=== PATIENT | female | born 1980 | race Caucasian/White ===

== ENCOUNTER 2023-06-24 10:58 | Outpatient (CLI) | payer OTHER, SELFPAY ==
[2023-06-24 19:46] LABS: Hematocrit 45.3 % (37.0-47.0); Hemoglobin 14.3 g/dL (12.0-15.0); Mean Corpuscular HGB Conc 31.6 g/dl (32-36); Mean Corpuscular Hemoglobin 29.8 pg (26-34); Mean Corpuscular Volume 94.4 fl (80-100); Mean Platelet Volume 10.8 fl (7.4-10.4); Platelet Count Result 311 k/mm3 (150-375); Red Cell Distribution Width 12.1 % (11.5-14.5); White Blood Count 8.3 K/mm3 (4.5-10.0)
[2023-06-24 19:47] LABS: Iron 82 ug/dL (37-170)
[2023-06-24 19:57] LABS: Percent Iron Saturation 22 % (20-50)
[2023-06-24 20:25] LABS: Alanine Aminotransferase 14 U/L (6-35); Albumin Level 4.3 g/dL (3.5-5.1); Alkaline Phosphatase 66 U/L (38-126); Anion Gap 8 mmol/L (8-16); Aspartate Amino Transferase 22 U/L (14-36); Bilirubin,Total 0.4 mg/dL (0.2-1.3); Blood Urea Nitrogen 10 mg/dL (7-17); Calcium 9.1 mg/dL (8.4-10.2); Carbon Dioxide 26 mmol/L (22-30); Chloride 106 mmol/L (98-107); Estimated Glomerular Filt Rate > 60; Glucose 99 mg/dL (65-110); Potassium 4.3 mmol/L (3.4-5.0); Sodium 140 mmol/L (137-145)
== END 2023-06-24 10:59 | disposition home or self-care (01) ==
PROVIDERS: PCP Nurse Practitioner Adult Health; Visit Provider Nurse Practitioner Adult Health
DX: N92.0 Excessive and frequent menstruation with regular cycle (principal)
CPT/HCPCS: 36415; 80053; 82728; 83540; 83550; 84439; 84443; 85027

== ENCOUNTER 2025-05-18 09:09 | Emergency (ER) | payer OTHER, SELFPAY ==
--- NOTE | ~2025-05-18 | US_ITS ---
EXAMINATION: US pelvic complete DATE: 05/18/2025 10:51 INDICATION: Abnormal vaginal bleeding TECHNIQUE: Multiple transabdominal and endovaginal sonographic images of the pelvis were obtained. COMPARISON: None. FINDINGS: The uterus measures 10.4 x 5.0 x 7.0 cm. The endometrial complex is thickened measuring 23.3 cm in thickness with heterogeneous internal echogenicity. The right ovary measures 4.1 x 3.2 x 2.2 cm. Anechoic cystic lesion in the right ovary with single thin internal septation which could represent either a mildly complex septated cyst or more likely a smaller 1.6 cm cyst impressing upon a larger 3.7 cm cyst. The left ovary measures 2.1 x 1.3 x 1.1 cm. Vascular flow identified in both ovaries on color Doppler There is trace amount of likely physiologic free fluid in the cul-de-sac. IMPRESSION: 1. Heterogeneous thickened endometrial complex for which differential would include endometrial hyperplasia, endometrial polyp or endometrial carcinoma. Consider hysteroscopy for further evaluation. 2. A couple simple right ovarian cysts versus 3.7 cm mildly complex cyst with single thin internal septation not requiring further follow-up. Reviewed, dictated and finalized at location A. OR PHP WEB DEVELOPER IMPRESSION: 1. Heterogeneous thickened endometrial complex for which differential would inc lude endometrial hyperplasia, endometrial polyp or endometrial carcinoma. Consi sundar hysteroscopy for further evaluation. 2. A couple simple right ovarian cysts versus 3.7 cm mildly complex cyst with s noa thin internal septation not requiring further follow-up.
[2025-05-18 09:15] VITALS: BP 138/77; PULSE 81; RESP 16; TEMP 36.4; O2SAT 100
--- OUTSIDE RECORDS SUMMARY | 2025-05-18 09:24 | XMS_ITS | Clinical Summary ---
Author Organization [facility] [employer] Address [address] [place] [id number] Care Team Providers Care Weapons Officer Name Role Phone Zakiya Morrison MD Primary Care Provider [phone] Allergies No known active allergies Medications meclizine 12.5 mg tablet Take 12.5 mg by mouth 3 times daily as needed for Dizziness. Active DULoxetine (Cymbalta) 30 mg Capsule, Delayed Release(E.C.) Take 1 Capsule (30 mg) by mouth daily in the morning. 30 Capsule 11/09/2024 Active Active Problems Problem Noted Date Diagnosed Date Mixed hyperlipidemia 01/07/2024 Post-concussion vertigo 12/28/2022 Anxiety and depression 12/28/2022 BPV (benign positional vertigo), bilateral 12/07 Vitamin D insufficiency 04/02/2022 Low vitamin B12 level 04/02/2022 Non-seasonal allergic rhinitis 03/19/2022 Severe menstrual cramps 03/19/2022 Encounters Date Type Department Care Team Description 05/11/2025 External Device Data [facility]STRACTION Provider, Abstract 05/05/2025 External Device Data [facility] Provider, Abstract 05/04/2025 External Device Data [facility] Provider, Abstract 04/27/2025 External Device Data [facility]STRA[facility] Provider, Abstract from Last 3 Months Family History Medical History Relation Name Comments COPD Father Hepatitis Father Hypertension Father Liver Disease Father Hepatitis Mother Liver Disease Mother Hypertension Paternal Grandfather Relation Name Status Comments Father Alive Mother Paternal Grandfather Son 1 Alive Son 2 Alive Social History Tobacco Use Types Packs/Day Years Used Date Smoking Tobacco: Former Cigarettes Smokeless Tobacco: Never Tobacco Cessation:Counseling Given: Not Answered Alcohol Use Standard Drinks/Week Comments Not Currently 0 (1 standard drink = 0.6 oz pur e alcohol) Comments No Sex and Gender Information Value Date Recorded Sex Assigned at Not on file Legal Sex Female 12:54 PM CDT Gender Identity Not on file Sexual Orientation Not on file Last Filed Vital Signs Vital Sign Reading Time Taken Comments Blood Pressure 120/72 11/09/2024 10:17 AM CDT Pulse 77 11/09/2024 10:17 AM CDT Temperature 36.8 C (98.2 F) 11/09/2024 10:17 AM CDT Respiratory Rate 16 11/09/2024 10:17 AM CDT Oxygen Saturation 100% 11/09/2024 10:17 AM CDT Inhaled Oxygen Concentration - - Weight 90.3 kg (199 lb) 11/09/2024 10:17 AM CDT Height 162.6 cm (5' 4) 11/09/2024 10:17 AM CDT Body Mass Index 34.16 11/09/2024 10:17 AM CDT Plan of Treatment Health Maintenance Due Date Last Done Comments DTAP/TDAP/TD VACCINES (1 - Tdap) 01/31/2000 HEPATITIS B VACCINES (1 of 3 - 19+ 3-dose series) 01/31/2000 HPV VACCINES (1 - 3-dose SCDM series) 01/31/2008 BREAST CANCER SCREENING 04/30/2023 04/30/2022, 04/16 Preventative Visit- Commercial 07/08/2024 INFLUENZA VACCINE (#1) 2025 Pre-Diabetes and Diabetes Screening 03/26/202503/26 PAP SMEAR 04/02/2025 04/02/2022 CERVICAL CANCER SCREENING 04/02/2027 HPV/Cotest (21-29) 04/02/2027 04/02/2022 HPV/Cotest (30-65) 04/02/2027 04/02/2022 Procedures Procedure Name Priority Date/Time Associated Diagnosis Comments MAMMO DIAG UNI LEFT 3D DAVIDA W OR WO CAD Routine 04/30/2022 2:11 PM CDT Mass of left breast, unspecified quadrant CERV/VAG CYTO AGE BASED SCREEN PAP Routine 04/02/2022 11:04 AM CDT Well woman exam with routine gynecological exam HEMOGLOBIN A1C Routine 03/26/2022 8:44 AM CDT Screening for diabetes mellitus from Last 3 Months or Most Recently Relevant to Health Maintenance Results * (ABNORMAL) MAMMO DIAG UNI LEFT 3D DAVIDA W OR WO CAD (04/30/2022 2:11 PM CDT) Anatomical Region Laterality Modality Breast Left Mammography 04/30/2022 2:11 PM CDT Impressions 04/30/2022 3:44 PM CDT IMPRESSION: A benign-appearing solid mass at 3:00 of the left breast. RECOMMENDATIONS: Ultrasound-guided guided left breast core biopsy. Left breast overall assessment: BI-RADS Category 4A. Low suspicious lesion. Tissue biopsy is needed. DICTATION LOCATION: [facility] 04/30/2022 3:44 PM CDT MAMMOGRAPHY DIGITAL DIAGNOSTIC UNILATERAL LEFT 3-D TOMOGRAPHY WITH CAD AND LEFT BREAST ULTRASOUND LIMITED 04/30/2022. HISTORY: The screening mammogram dated 04/16/2022 showed masses in the left breast. Left mammographic findings: Tomographic mediolateral view and spot compression views were obtained. The oval mass in the outer central aspect of left breast at the anterior depth is seen. There is again a mass in the outer central aspect of the left breast at the posterior depth. No malignant calcification or architectural distortion is seen. Left breast ultrasound findings: At 3:00, 2 cm from nipple, an oval hypoechoic mass with smooth margins is seen which probably represents a fibroadenoma. It measures 1.5 x 0.7 x 1.5 cm. A cyst is visualized at 3:00, 6 cm from the nipple measuring 0.7 x 0.4 x 0.9 cm. Small cluster of cysts is noted at 4:00, 2 cm from the nipple measuring 0.7 x 0.3 x 0.6 cm. A small oval hypoechoic structure is identified at 4:00 near the nipple measuring 0.8 x 0.3 x 0.7 cm. It appears benign. Another small oval hypoechoic lesion is seen at 6:00, 4 cm from nipple which may represent a cluster of cysts or a lymph node. It measures 0.6 x 0.2 x 0.6 cm. Procedure Note Hina Mauricio MD - 04/30/2022 MAMMOGRAPHY DIGITAL DIAGNOSTIC UNILATERAL LEFT 3-D TOMOGRAPHY WITH CAD AND LEFT BREAST ULTRASOUND LIMITED 04/30/2022. HISTORY: The screening mammogram dated 04/16/2022 showed masses in the left breast. Left mammographic findings: Tomographic mediolateral view and spot compression views were obtained. The oval mass in the outer central aspect of left breast at the anterior depth is seen. There is again a mass in the outer central aspect of the left breast at the posterior depth. No malignant calcification or architectural distortion is seen. Left breast ultrasound findings: At 3:00, 2 cm from nipple, an oval hypoechoic mass with smooth margins is seen which probably represents a fibroadenoma. It measures 1.5 x 0.7 x 1.5 cm. A cyst is visualized at 3:00, 6 cm from the nipple measuring 0.7 x 0.4 x 0.9 cm. Small cluster of cysts is noted at 4:00, 2 cm from the nipple measuring 0.7 x 0.3 x 0.6 cm. A small oval hypoechoic structure is identified at 4:00 near the nipple measuring 0.8 x 0.3 x 0.7 cm. It appears benign. Another small oval hypoechoic lesion is seen at 6:00, 4 cm from nipple which may represent a cluster of cysts or a lymph node. It measures 0.6 x 0.2 x 0.6 cm. IMPRESSION: A benign-appearing solid mass at 3:00 of the left breast. RECOMMENDATIONS: Ultrasound-guided guided left breast core biopsy. Left breast overall assessment: BI-RADS Category 4A. Low suspicious lesion. Tissue biopsy is needed. DICTATION LOCATION: [facility] us Nicole James MD MAMMO ORDERABLES Final Result * CERV/VAG CYTO AGE BASED SCREEN PAP (04/02/2022 11:04 AM CDT) COMMENT (PAP): [facility] [place] Comment: This order for age-based cervical cancer and STI screening follows ACOG guidelines(PB 168, 140, [id number]). See individual assays for performing site location. CLINICAL INFORMATION [facility] [place] Comment:None given LAST MENSTRUAL PERIOD [facility] [place] Comment:NONE GIVEN PREV PAP: [facility] [place] Comment:NONE GIVEN PREV BX: [facility] [place] Comment:NONE GIVEN SOURCE [facility] [place] Comment:Endocervix ADEQUACY: [facility] [place] Comment: Satisfactory for evaluation. Endocervical/transformation zone component present. Age and/or menstrual status not provided PAP INTERP [facility] [place] Comment:Negative for intraep ithelial lesion or malignancy. COMMENT (PAP TEST) [facility] [place] Comment: This Pap test has been evaluated with computer assisted technology. TIRE TRUCKER: [facility] [place] Comment: MVB, CT(ASCP) CT Screening Location: [place] [address] [place] [address] EXPLANATORY NOTE [facility] [place] Comment: EXPLANATORY NOTE: The Pap is a screening test for cervical cancer. It is not a diagnostic test and is subject to false negative and false positive results. It is most reliable when a satisfactory sample, regularly obtained, is submitted with relevant clinical findings and history, and when the Pap result is evaluated along with historic and current clinical information. HPV E6/E7 Not Detected Not Detected [facility] [place] Comment: Methodology: Percussion Tuner-Mediated Amplification This assay detects E6/E7 viral messenger RNA (mRNA) from 14 high-risk HPV types (16,18,31,33,35,39,45,51,52,56,58,59,66,68). Cervical sources are required for HPV testing. If a vaginal source from a patient who has had a total hysterectomy with removal of cervix was submitted, please contact the testing laboratory for alternative testing options. For additional information, please refer to http://[email or web address].Dealstruck/faq/SYC231r1 (This link if provided for information/ educational purposes only.) Test Performed at: [facility] [id number] [place] [address] Saeid Castillo D.O., MPH SL Genital SWAB OF ENDOCERVIX / Unknown 04/02/2022 11:04 AM CDT 04/03/2022 1:40 AM CDT Nicole James MD PATHOLOGY/CYTOLOGY ORDERABLES Final Result Performing Organization Address City/State/[facility] Co de Phone Number [facility] [phone] [facility] [address] [phone] * HEMOGLOBIN A1C (03/26/2022 8:44 AM CDT) HEMOGLOBIN A1C 5.0 <5.7 % of total Hgb [facility] Comment: For the purpose of screening for the presence of diabetes: <5.7% Consistent with the absence of diabetes 5.7-6.4% Consistent with increased risk for diabetes (prediabetes) > or =6.5% Consistent with diabetes This assay result is consistent with a decreased risk of diabetes. Currently, no consensus exists regarding use of hemoglobin A1c for diagnosis of diabetes in children. According to [place] Diabetes Association (ADA) guidelines, hemoglobin A1c <7.0% represents optimal control in non- diabetic patients. Different metrics may apply to specific patient populations. Standards of Medical Care in Diabetes(ADA). ESTIMATED AVERAGE GLUCOSE (MG/DL) 97 mg/dL [facility] ESTIMATED AVERAGE GLUCOSE (MMOL/L) 5.4 mmol/L [facility] Comment: Test Performed at: [facility] [id number] [email or web address] [address] Saeid Castillo D.O., MPH Blood 03/26/2022 8:44 AM CDT 03/27/2022 7:13 AM CDT Nicole James MD CHEMISTRY ORDERABLES Final Re sult Performing Organization Address [facility] Co de Phone Number [facility] [phone] [facility] [address] [address] [phone] from Last 3 Months or Most Recently Relevant to Health Maintenance Insurance ALLEGIANCE OPEN ACCESS ALLEGIAN OPEN ACCESS Care Teams Weapons Officer Relationship Specialty Start Date End Date Zakiya Morrison MD [address] [place] [phone] PCP - General Internal Medicine 01/03/24
--- OUTSIDE RECORDS SUMMARY | 2025-05-18 09:24 | XMS_ITS | Clinical Summary ---
Author Organization [facility] Address [address] [place] [address] Care Team Providers Care Algebraist Name Role Phone Nicole James MD Primary Care Provider Allergies No known active allergies Medications HYDROcodone-acetam inophen (NORCO) 5-325 mg per tabletIndications: Pain Take 1-2 tablets by mouth every 4 (four) hours as needed for pain Do not exceed 8 tablets/day. 12 tablet 11/07/19 23 Active Additional Information Patient not taking.Reported on 03/24/2023 meclizine (ANTIVERT) 25 mg tablet Take 1 tablet (25 mg total) by mouth 3 (three) times a day as needed for dizziness 30 tablet 1 12/13/19 23 Active cholecalciferol (VITAMIN D-3) 2000 unit tablet Take 2 tablets (4,000 Units total) by mouth daily 04/02/20 22 Active cyanocobalamin (Vitamin B-12) 1,000 mcg tablet Take 1 tablet (1,000 mcg total) by mouth daily 04/02/20 22 Active cyclobenzaprine (FLEXERIL) 5 mg tablet Take 1 tablet (5 mg total) by mouth nightly 12/08/19 21 Active escitalopram (LEXAPRO) 20 mg tablet Take 1 tablet (20 mg total) by mouth daily 12/29/19 23 Active ondansetron ODT (ZOFRAN-ODT) 4 mg disintegrating tablet Take 1 tablet (4 mg total) by mouth every 8 (eight) hours as needed for nausea or vomiting 20 tablet 03/24/20 23 Active benzonatate (TESSALON) 100 mg capsuleIndications :Cough Take 1 capsule (100 mg total) by mouth 3 (three) times a day as needed for cough 42 capsule 03/24/20 23 Active Active Problems No known active problems Social History Tobacco Use Types Packs/Day Years Used Date Smoking Tobacco: Never Assessed Personal Safety Answer Date Recorded Have you ever been in or are you currently in a harmful physical or emotional relationship or is someone making you feel afraid or unsafe? Denies 12/12/2022 Comments Unknown Sex and Gender Information Value Date Recorded Sex Assigned at Not on file Legal Sex Female 1:13 PM CDT Gender Identity Not on file Sexual Orientation Not on file Last Filed Vital Signs Vital Sign Reading Time Taken Comments Blood Pressure 130/74 03/24/2023 5:05 PM CDT Pulse 77 03/24/2023 5:05 PM CDT Temperature 36.3 C (97.3 F) 03/24/2023 5:05 PM CDT Respiratory Rate 18 03/24/2023 5:05 PM CDT Oxygen Saturation 99% 03/24/2023 5:05 PM CDT Inhaled Oxygen Concentration - - Weight 88.5 kg (195 lb) 03/24/2023 5:05 PM CDT Height 165.1 cm (5' 5) 03/24/2023 5:05 PM CDT Body Mass Index 32.45 03/24/2023 5:05 PM CDT Plan of Treatment Health Maintenance Due Date Last Done Comments Breast Cancer Screening-Mammogram 1981 Cervical Cancer Screening 1981 Depression Screening 1981 Hepatitis C Screening 1981 DTaP/Tdap/Td Vaccine (1 - Tdap) 01/31/1992 Varicella Vaccines (1 of 2 - 13+ 2-dose series) 1994 Hepatitis B Screening 1999 Regular Well Visit/Exam 18-64 1999 HPV Vaccines (1 - 3-dose SCD M series) 01/31/2008 Covid-19 Vaccine ( - 2024-2 6 season) 2025 05/26/2021, 05/05/2021 Influenza Vaccine (#1) 2025 Pneumococcal vaccine <65 Aged Out No longer eligible based on patient's age to complete this topic Insurance C[employer] ALLEGIANCE CIGNA ALLEGIANCE Care Teams Algebraist Relationship Specialty Start Date End Date Nicole James MD PCP - General Family Medicine 11/06/22
--- NOTE | 2025-05-18 09:58 | ED_ITS ---
HPI - Female Genitourinary General Chief complaint: Vaginal Bleeding Stated complaint: dizzy x 1.5 months Time Seen by Provider: 05/18/25 09:26 History of Present Illness HPI Narrative: 45-year-old female presenting with complaints of heavy vaginal bleeding since April 17. Patient reports she missed her March period then began her last period April 17 and it has not abated since. Patient is not on contraception and has no concern for STDs. She believes she is updated on her Paps. Due to see Dr. Weaver in June. She reports dizziness, right-sided abdominal cramping that radiates towards the midline, nausea with vomiting the last few weeks and this morning, and excessive fatigue. She endorses going through a full maxi pad and tampon per hour for the last few days. Denies abnormal discharge, chest pain/shortness of breath, dysuria, diarrhea/constipation, night sweats, weight loss, and exertional dyspnea. Related Data Allergies Allergy/AdvReac Type Severity Reaction Status Date / Time No Known Allergies Allergy Verified 05/18/25 09:19 Review of Systems 2 Review of Systems: All systems reviewed & are unremarkable except as noted in HPI and below PMFSH Past Medical History Medical History Anxiety Asthma Chronic GERD Headache Migraine Vertigo Family History Family History Father History of ETOH abuse Hypertension Heart disease Hepatitis HEP C Mother History of ETOH abuse Hepatitis HEP C Disorder of thyroid Sibling Disorder of thyroid Grandparent Disorder of thyroid Grandparent Hypertension Heart disease Cerebrovascular accident Social History Social History Social History: Caffeine- coffee/tea/soda 2 cups per day Tobacco type: e-cigarettes/vaping Alcohol intake: never Substance use: never Substance use type: does not use Lack of Transportation: No Lack of Food: Sometimes True Current Housing: I Have Housing Concerned About Future Housing: No Difficulty Paying Gas/Electric Bills: No Difficulty Paying for Meds: No Currently Unemployed: No Education: Associate Degree Difficulty w/ Childcare or Family Care: No Living arrangements: with family Occupation/Education: occupation Additional occupation/education comments: [employer] 1 Gender identity (if verbalized by the patient): Female Agree to blood products: Yes Exam 2 Narrative: GENERAL: Well-appearing, well-nourished, and in no acute distress. HEAD: Normocephalic, atraumatic. EYES: PERRLA and EOMI. ENT: Nares clear, no rhinorrhea or epistaxis. Mucous membranes moist. Oropharynx without tonsillar hypertrophy exudate or other lesions. Bilateral TMs pearly pike non-bulging NECK: Supple. No adenopathy or masses. No carotid bruits or JVD CHEST: Clear to auscultation. No respiratory distress. No wheezes rales or rhonchi HEART: Regular rate and rhythm. No murmur heard. Normal peripheral pulses. ABDOMEN: Soft, nontender, nondistended, normal active bowel sounds. EXTREMITIES: Normal range of motion. No edema. SKIN: Warm, dry, no rash. NEURO: No focal deficits. Alert and oriented x3. PSYCH: Normal mood and affect PELVIC: External genitalia normal. Vaginal mucosa without lesions or discharge. Small amount of blood present in vaginal vault. Cervix appears closed without lesions. No cervical motion tenderness or adnexal tenderness on bimanual exam. Course Vital Signs Vital signs: Vital Signs Temperature 97.5 F L 05/18/25 09:15 Pulse Rate 81 05/18/25 09:15 Respiratory Rate 16 05/18/25 09:15 Blood Pressure 138/77 05/18/25 09:15 Pulse Oximetry 100 05/18/25 09:15 Oxygen Delivery Room Air 05/18/25 09:15 Temperature 97.5 F L 05/18/25 09:15 Pulse Rate 84 05/18/25 13:24 Respiratory Rate 17 05/18/25 13:24 Blood Pressure 112/74 05/18/25 13:24 Pulse Oximetry 100 05/18/25 13:24 Oxygen Delivery Room Air 05/18/25 09:15 MDM - Female Genitourinary MDM Narrative Medical decision making narrative: 45-year-old female presenting with complaints of heavy vaginal bleeding since April 17. Patient reports she missed her March period then began her last period April 17 and it has not abated since. Patient is not on contraception and has no concern for STDs. She believes she is updated on her Paps. Due to see Dr. Weaver in June. She reports dizziness, right-sided abdominal cramping that radiates towards the midline, nausea with vomiting the last few weeks and this morning, and excessive fatigue. She endorses going through a full maxi pad and tampon per hour for the last few days. Denies abnormal discharge, chest pain/shortness of breath, dysuria, diarrhea/constipation, night sweats, weight loss, and exertional dyspnea. ED urogenital vaginal bleeding workup obtained. Patient's vitals are stable. TV US demonstrated Heterogeneous thickened endometrial complex for which differential would include endometrial hyperplasia, endometrial polyp or endometrial carcinoma with recommendation of hysteroscopy for further evaluation. And furthermore a couple simple right ovarian cysts versus 3.7 cm mildly complex cyst with single thin internal septation not requiring further follow-up. Spoke with Dr. An with OBGYN who recommended a pelvic exam to assess gross blood and if present to administer TXA and if not to discharge home with Provera and to follow-up outpatient. Pelvic exam demonstrated only a small amount of blood indicating no need for TXA. Patient also reported that when she changed her tampon there was significantly less blood. CBC demonstrated hgb of 9. Positive orthostatic vitals. Administered 1L NS for volume repletion. Vitals remained stable. Patient comfortable with discharge home with Provera and close follow-up with OBGYN. Given reasons to return. Medical Records Attestation: I reviewed the patient's medical records. Lab Data Attestation: I reviewed the patient's lab results. 05/18/25 10:52 05/18/25 10:52 Labs: Lab Results 05/18/25 05/18/25 05/18/25 Range/Units 10:42 10:52 11:18 WBC 7.3 (4.5-10.0) K/mm3 RBC 3.48 L (4.2-5.4) M/mm3 Hgb 9.0 L D (12.0-15.0) g/dL Hct 29.1 L (37.0-47.0) % MCV 83.6 (80-100) fl MCH 25.9 L (26-34) pg MCHC 30.9 L (32-36) g/dl RDW 14.3 (11.5-14.5) % Plt Count 331 (150-375) k/mm3 MPV 10.5 H (7.4-10.4) fl Immature Gran % (Auto) 0.3 (0-0.5) % Neut % (Auto) 55.3 (45.5-73.1) % Lymph % (Auto) 34.4 (18.3-44.2) % [place] % (Auto) 7.0 (2.6-8.5) % Eos % (Auto) 2.5 (0-4.4) % Baso % (Auto) 0.5 (0.2-1.2) % Lymph # (Auto) 2.52 (0.9-3.2) K/mm3 [place] # (Auto) 0.5 (0.1-0.6) K/mm3 Eos # (Auto) 0.2 (0-0.3) K/mm3 Baso # (Auto) 0.0 (0.0-0.1) K/mm3 Abs Immat Gran (auto) 0.02 (0.00-0.031) K/mm3 Absolute Neuts (auto) 4.1 (1.3-6.7) K/mm3 Absolute Nucleated RBC 0.000 (0.0-0.012) K/mm3 Nucleated RBC % 0.0 (0.0-0.2) % PT 13.7 (11.1-14.7) Seconds INR 1.1 APTT 24.4 (22.3-36.8) Seconds Sodium 137 (137-145) mmol/L Potassium 3.8 (3.4-5.0) mmol/L Chloride 105 (98-107) mmol/L Carbon Dioxide 26 (22-30) mmol/L Anion Gap 6 (4-12) mmol/L BUN 7 (7-17) mg/dL Creatinine 0.76 (0.7-1.0) mg/dL Estim Creat Clear Calc 89 ml/min Estimated GFR > 60 (59 - ) Glucose 103 (65-110) mg/dL Calcium 8.4 (8.4-10.2) mg/dL Total Bilirubin 0.3 (0.2-1.3) mg/dL AST 22 (14-36) U/L ALT 20 (6-35) U/L Alkaline Phosphatase 68 (38-126) U/L Total Protein 7.6 (6.3-8.2) g/dL Albumin 4.3 (3.5-5.1) g/dL Beta HCG, Quant < 2.39 mIU/ML Urine Color TNP Urine Appearance TNP Urine pH TNP Ur Specific [place] TNP Urine Protein TNP Urine Glucose (UA) TNP Urine Ketones TNP Ur Blood (Man) TNP Urine Nitrate TNP Urine Bilirubin TNP Urine Urobilinogen TNP Add Ur Microanalysis Reviewed Leukocyte Esterase Rfl TNP Urine RBC 21-50 H (0-2) /hpf Urine WBC 0-5 (0-3) /hpf Ur Squamous Epith Cells None seen (Few) /hpf Urine Bacteria None seen /hpf Urine Casts 0-2 POC Urine HCG, Qual Negative (Negative) Blood Type O Negative Antibody Screen Negative Imaging Data Attestation: I personally reviewed and interpreted this imaging study as follows: Radiologist's impression: ITS Impressions Pelvis Ultrasound 05/18/25 11:01 IMPRESSION: 1. Heterogeneous thickened endometrial complex for which differential would include endometrial hyperplasia, endometrial polyp or endometrial carcinoma. Consider hysteroscopy for further evaluation. 2. A couple simple right ovarian cysts versus 3.7 cm mildly complex cyst with single thin internal septation not requiring further follow-up. Critical Care Time Critical Care Time Critical Care Time: No Discharge Plan Discharge Clinical Impression: Abnormal uterine bleeding (AUB) Patient Disposition: Home Condition: Stable Instructions: Abnormal (Dysfunctional) Uterine Bleeding (ED) Additional Instructions: Take the Provera exactly as prescribed. Usually once a day for a certain number of days. You can take it with or without food. Try to take it at the same time each day. Your cycle may start during or after your medication. You may notice spotting, mild cramping, breast tenderness, or bloating--this is normal. Return to ED if you have heavy or prolonged bleeding, severe abdominal pain, swelling or pain in your legs, chest pain, shortness of breath, sudden severe headache, or vision changes. Do not smoke while taking this medicine especially if you are over 35. Be sure to follow-up with your OBGYN and primary for further outpatient workup and treatment. Patient Language: Icelandic Prescriptions: New medroxyprogesterone [Provera] 10 mg tablet 10 mg PO DAILY Qty: 30 0RF No Action fluoxetine 10 mg tablet 10 mg PO QHS Qty: 30 1RF meclizine 25 mg tablet 25 mg PO DAILY PRN (Reason: dizziness) Qty: 30 1RF Follow-up/Referrals: PHYSICIAN NOT ON STAFF,NONSTAFF [Primary Care Provider]
[2025-05-18] MEDS: ONDANSETRON HCL ODT 4 MG TABLET PO (10:41)
[2025-05-18 10:42] VITALS: BP 117/79; PULSE 77; RESP 20; O2SAT 100
--- NOTE | 2025-05-18 10:45 | PC.NURSE ---
Pt returned to room 10 after US, reconnected to monitor, adjusted and updated.
[2025-05-18 11:00] LABS: Hematocrit 29.1 % (37.0-47.0); Hemoglobin 9.0 g/dL (12.0-15.0); Immature Granulocyte Percent A 0.3 % (0-0.5); Lymphocytes Absolute Auto 2.52 K/mm3 (0.9-3.2); Mean Corpuscular HGB Conc 30.9 g/dl (32-36); Mean Corpuscular Hemoglobin 25.9 pg (26-34); Mean Corpuscular Volume 83.6 fl (80-100); Nucleated Red Blood Cells Absolute Auto 0.000 K/mm3 (0.0-0.012); Nucleated Red Blood Cells Perc 0.0 % (0.0-0.2); Platelet Count Result 331 k/mm3 (150-375); Red Blood Count 3.48 M/mm3 (4.2-5.4); White Blood Count 7.3 K/mm3 (4.5-10.0)
[2025-05-18 11:12] LABS: INR 1.1; Prothrombin Time 13.7 Seconds (11.1-14.7)
[2025-05-18 11:13] LABS: Partial Thromboplastin Time 24.4 Seconds (22.3-36.8)
[2025-05-18 11:16] LABS: Alanine Aminotransferase 20 U/L (6-35); Albumin Level 4.3 g/dL (3.5-5.1); Alkaline Phosphatase 68 U/L (38-126); Anion Gap 6 mmol/L (4-12); Aspartate Amino Transferase 22 U/L (14-36); Bilirubin,Total 0.3 mg/dL (0.2-1.3); Blood Urea Nitrogen 7 mg/dL (7-17); Calcium 8.4 mg/dL (8.4-10.2); Carbon Dioxide 26 mmol/L (22-30); Chloride 105 mmol/L (98-107); Estimated CRCL calculation 89 ml/min; Estimated Glomerular Filt Rate > 60; Glucose 103 mg/dL (65-110); Potassium 3.8 mmol/L (3.4-5.0); Sodium 137 mmol/L (137-145); Total Protein 7.6 g/dL (6.3-8.2)
[2025-05-18 11:20] LABS: Need Manual Microscopic Reviewed; Non Pathogenic Casts 0-2
[2025-05-18 11:21] LABS: BEDSIDEPREGUCG Negative (Negative)
[2025-05-18 11:28] LABS: Beta HCG Quantitative < 2.39 mIU/ML
[2025-05-18 11:32] LABS: Add Urine Microscopic? YES
--- OUTSIDE RECORDS SUMMARY | 2025-05-18 11:41 | XMS_ITS | Clinical Summary ---
Author Organization [facility] [employer] W[place]URCH Address [address] [place] [id number] Care Team Providers Care Content Engineer Name Role Phone Zakiya Morrison MD Primary Care Provider [phone] Allergies No known active allergies Medications meclizine [...] lesion. Tissue biopsy is needed. DICTATION LOCATION: [facility] 04/30/2022 3:44 PM CDT MAMMOGRAPHY DIGITAL [...] lesion. Tissue biopsy is needed. DICTATION LOCATION: [facility] us Nicole James MD MAMMO ORDERABLES Final Result * CERV/VAG CYTO AGE BASED SCREEN PAP (04/02/2022 11:04 AM CDT) COMMENT (PAP): [facility] [place] Comment: This order for age-based cervical cancer and STI screening follows ACOG guidelines(PB 168, 140, ZAF598). See individual assays for performing site location. CLINICAL INFORMATION [facility] [place] Comment:None given LAST MENSTRUAL PERIOD [facility] [place] Comment:NONE GIVEN PREV PAP: [facility] [place] Comment:NONE GIVEN PREV BX: [facility] [place] Comment:NONE GIVEN SOURCE [facility] [place] Comment:Endocervix ADEQUACY: [facility] [place] Comment: Satisfactory for evaluation. Endocervical/transformation zone component present. Age and/or menstrual status not provided PAP INTERP [facility] [place] Comment:Negative for intraep ithelial lesion or malignancy. COMMENT (PAP TEST) [facility] [place] Comment: This Pap test has been evaluated with computer assisted technology. DIRECTOR OF OPERATIONS HOME HEALTH: [facility] [place] Comment: MVB, CT(ASCP) CT Screening Location: [place] [address] [place] [address] EXPLANATORY NOTE [facility] [place] Comment: EXPLANATORY NOTE: The Pap is a [...] information. HPV E6/E7 Not Detected Not Detected [facility] [place] Comment: Methodology: Payroll Technician-Mediated Amplification This assay detects E6/E7 viral messenger RNA (mRNA) from 14 high-risk HPV types (16,18,31,33,35,39,45,51,52,56,58,59,66,68). Cervical sources are required for HPV testing. If a vaginal source from a patient who has had a total hysterectomy with removal of cervix was submitted, please contact the testing laboratory for alternative testing options. For additional information, please refer to http://education.[employer].Acteavo/faq/MBP244y6 (This link if provided for information/ educational purposes only.) Test Performed at: [facility] [id number] [place] [address] Saeid Castillo D.O., MPH SL Genital SWAB OF ENDOCERVIX / Unknown 04/02/2022 11:04 AM CDT 04/03/2022 1:40 AM CDT Nicole James MD PATHOLOGY/CYTOLOGY ORDERABLES Final Result Performing Organization Address City/State/[facility] Co de Phone Number [facility] [phone] [facility] [phone] [phone] * HEMOGLOBIN A1C (03/26/2022 8:44 AM CDT) HEMOGLOBIN A1C 5.0 <5.7 % of total Hgb [facility] Comment: For the purpose of screening for the presence of diabetes: <5.7% Consistent with the absence of diabetes 5.7-6.4% Consistent with increased risk for diabetes (prediabetes) > or =6.5% Consistent with diabetes This assay result is consistent with a decreased risk of diabetes. Currently, no consensus exists regarding use of hemoglobin A1c for diagnosis of diabetes in children. According to [place] Diabetes Association (ADA) guidelines, hemoglobin A1c <7.0% represents optimal control in non- diabetic patients. Different metrics may apply to specific patient populations. Standards of Medical Care in Diabetes(ADA). ESTIMATED AVERAGE GLUCOSE (MG/DL) 97 mg/dL [facility] ESTIMATED AVERAGE GLUCOSE (MMOL/L) 5.4 mmol/L [facility] Comment: Test Performed at: [facility] [id number] [place] [address] Saeid Castillo D.O., MPH Blood 03/26/2022 8:44 AM CDT 03/27/2022 7:13 AM CDT Nicole James MD CHEMISTRY ORDERABLES Final Re sult Performing Organization Address [facility] Co de Phone Number [facility] [phone] [facility] [phone] [address] [phone] from Last 3 Months or Most Recently Relevant to Health Maintenance Insurance ALLEGIANCE OPEN ACCESS ALLEGIAN OPEN ACCESS Care Teams Content Engineer Relationship Specialty Start Date End Date Zakiya Morrison MD [address] [place] [phone] PCP - General Internal Medicine 01/03/24
--- OUTSIDE RECORDS SUMMARY | 2025-05-18 11:41 | XMS_ITS | Clinical Summary ---
Author Organization [facility] Address [address] [place] [address] Care Team Providers Care Infection Prevention Practitioner Name Role Phone Nicole James MD Primary [...] Insurance [employer] ALLEGIANCE CIGNA ALLEGIANCE Care Teams Infection Prevention Practitioner Relationship Specialty Start Date End Date Nicole James MD PCP - General Family Medicine 11/06/22
[2025-05-18] MEDS: SODIUM CHLORIDE 0.9% IV 1,000 ML 999 ML IV CONT (11:59)
[2025-05-18 12:09] VITALS: BP 112/66; PULSE 70; RESP 16; O2SAT 100
[2025-05-18 13:24] VITALS: BP 112/74; PULSE 84; RESP 17; O2SAT 100
== END 2025-05-18 13:32 | disposition home or self-care (01) ==
DX: N93.9 Abnormal uterine and vaginal bleeding, unspecified (principal); J45.909 Unspecified asthma, uncomplicated; F41.9 Anxiety disorder, unspecified; K21.9 Gastro-esophageal reflux disease without esophagitis; F17.290 Nicotine dependence, other tobacco product, uncomplicated; Z79.899 Other long term (current) drug therapy
CPT/HCPCS: 36415; 76856; 80053; 81001; 81025; 84702; 85025; 85610; 85730; 86850; 86900; 86901; 96360; 99284; A9270; J7030